=== PATIENT | female | born 1960 | race Caucasian/White ===

== ENCOUNTER 2023-11-15 07:41 | Day surgery (SDC) | payer OTHER ==
[~2023-11-15] VITALS: Ht 175.3 cm; Wt 72.6 kg
[2023-11-15] MEDS ORDERED: MEPERIDINE 100 MG INJ. 100 MG/ML VIAL ONE (11:39)
[2023-11-15] MEDS ORDERED: MIDAZOLAM HCL 5 MG/5 ML VIAL ONE (11:40)
[2023-11-15 13:46] VITALS: O2SAT 97
[2023-11-15 19:12] VITALS: BP_SYST 149; PULSE 74; RESP 14
== END 2023-11-15 13:56 | disposition home or self-care (01) ==
LOC: SDS 07:41
PROVIDERS: ATTEND Internal Medicine
DX: Z12.11 Encounter for screening for malignant neoplasm of colon (principal); D12.0 Benign neoplasm of cecum; K57.30 Diverticulosis of large intestine without perforation or abscess without bleeding; K64.8 Other hemorrhoids; I10 Essential (primary) hypertension; E78.5 Hyperlipidemia, unspecified; Z88.5 Allergy status to narcotic agent; Z98.890 Other specified postprocedural states; Z79.899 Other long term (current) drug therapy
CPT/HCPCS: 45385; 99152; 88305; G0378; J2250; J2175; 45382